=== PATIENT | male | born 1970 | race Caucasian/White ===

== ENCOUNTER 2022-05-12 20:57 | Inpatient (IN) | payer OTHER ==
[~2022-05-12] VITALS: Ht 167.6 cm; Wt 89.4 kg
[~2022-05-12 20:57] MED LIST: METF-371
[2022-05-12] MEDS ORDERED: NITROGLYCERIN 0.4 MG SL TAB SL ONE (21:15)
[2022-05-12] MEDS ORDERED: HEPARIN SODIUM (PORCINE) 5000 UNITS/ML 1ML VIAL IV ONE (21:15)
[2022-05-12] MEDS ORDERED: HEPARIN DRIP/D5W 100UNITS/ML 250 ML IV SCH (21:30)
[2022-05-12 21:46] LABS: Basophils # (auto) 0 10 ^3/uL (0-0.2); Basophils % (auto) 0.2 % (0.0-2.0); Eosinophils # (auto) 0.1 10 ^3/uL (0-0.8); Eosinophils % (auto) 0.5 % (0.0-7.0); Hematocrit 50.2 % (41.0-53.0); Hemoglobin 16.7 g/dL (13.5-17.5); Lymphocytes # (auto) 2.1 10 ^3/uL (0.4-5.4); Lymphocytes % (auto) 17.9 % (10.0-50.0); Mean Corpuscular Hemoglobin 28.9 pg (28.0-32.0); Mean Corpuscular Hgb Conc. 33.4 g/dL (32.0-36.0); Mean Corpuscular Volume 86.6 fL (80.0-100.0); Monocytes # (auto) 1.1 10 ^3/uL (0-1.3); Monocytes % (auto) 9.9 % (0.0-12.0); Neutrophils # (auto) 8.2 10 ^3/uL (1.6-8.6); Neutrophils % (auto) 71.5 % (37.0-80.0); Nucleated Red Blood Cells % 0.1 %; Red Cell Distribution Width 13.7 % (11.8-14.3); White Blood Cell 11.5 10^3/uL (4.4-10.8)
[2022-05-12 21:58] LABS: BUN/Creatinine Ratio 13.9; Calcium 8.4 mg/dL (8.5-10.1); Potassium 4.9 mmol/L (3.5-5.1)
[2022-05-12 22:01] LABS: Bilirubin, Total 1.5 mg/dL (0.2-1.0); Total Protein 6.3 g/dL (6.4-8.2)
[2022-05-12 22:04] LABS: INR 1.02 (0.9-1.15); Partial Thromboplastin Time 30.2 sec (24.6-33.4)
[2022-05-12] MEDS ORDERED: ACETAMINOPHEN 325 MG TAB PO PRN (22:30)
[2022-05-12] MEDS ORDERED: HYDROcodone-ACET 5/325MG TAB PO PRN (22:30)
[2022-05-12] MEDS ORDERED: DOCUSATE SOD 100 MG CAP PO PRN (22:30)
[2022-05-12] MEDS ORDERED: ONDANSETRON HCL 4 MG/2 ML VIAL IV PRN (22:30)
[2022-05-12] MEDS ORDERED: IBUPROFEN 600 MG TAB PO PRN (22:30)
[2022-05-12] MEDS ORDERED: DEXTROSE (50%) 50ML SYRG IV PRN (22:30)
[2022-05-12] MEDS ORDERED: MORPHINE SULFATE INJ 2 MG/ml SYRG IV PRN (23:30)
[2022-05-12] MEDS ORDERED: NITROGLYCERIN 0.4 MG SL TAB SL PRN (23:30)
[2022-05-13] VITALS (44 sets, daily range): BP systolic 86–144; BP diastolic 39–99
[2022-05-13] MEDS: ACCU-CHEK COMFORT CURVE STRIP VI SCH ×5 (00:18→20:02)
[2022-05-13] MEDS: SODIUM CHLORIDE 0.9% 1,000 ML IV SCH ×2 (00:18→15:10)
[2022-05-13] MEDS: InsuLIN REG 1unit/0.01ml Soln (100units/ml) SC SCH ×5 (01:02→20:07)
[2022-05-13 05:09] LABS: Basophils # (auto) 0 10 ^3/uL (0-0.2); Basophils % (auto) 0.3 % (0.0-2.0); Eosinophils # (auto) 0.1 10 ^3/uL (0-0.8); Eosinophils % (auto) 0.6 % (0.0-7.0); Hematocrit 47.9 % (41.0-53.0); Hemoglobin 16.6 g/dL (13.5-17.5); Lymphocytes # (auto) 2.5 10 ^3/uL (0.4-5.4); Lymphocytes % (auto) 19.9 % (10.0-50.0); Mean Corpuscular Hemoglobin 29.5 pg (28.0-32.0); Mean Corpuscular Hgb Conc. 34.7 g/dL (32.0-36.0); Mean Corpuscular Volume 85.3 fL (80.0-100.0); Monocytes # (auto) 1.3 10 ^3/uL (0-1.3); Monocytes % (auto) 10.1 % (0.0-12.0); Neutrophils # (auto) 8.7 10 ^3/uL (1.6-8.6); Neutrophils % (auto) 69.1 % (37.0-80.0); Nucleated Red Blood Cells % 0.4 %; Red Blood Cells 5.61 10^6/uL (4.5-5.90); Red Cell Distribution Width 13.6 % (11.8-14.3); White Blood Cell 12.7 10^3/uL (4.4-10.8)
[2022-05-13 05:21] LABS: INR 1.03 (0.9-1.15); Partial Thromboplastin Time 39.4 sec (24.6-33.4)
[2022-05-13 05:26] LABS: Albumin 2.9 g/dL (3.4-5.0); BUN/Creatinine Ratio 18.5; Calcium 8.2 mg/dL (8.5-10.1)
[2022-05-13 05:28] LABS: Bilirubin, Total 1.2 mg/dL (0.2-1.0); Total Protein 6.2 g/dL (6.4-8.2)
[2022-05-13] MEDS ORDERED: HEPARIN DRIP/D5W 100UNITS/ML 250 ML IV SCH (06:15)
[2022-05-13] MEDS ORDERED: ASPirin 325 MG TAB ONE (07:53)
[2022-05-13] MEDS ORDERED: ASPirin-EC 325mg tab PO ONE (08:00)
[2022-05-13] MEDS ORDERED: ANGIOMAX 250 MG VIAL IV ONE ×2 (08:06→09:08)
[2022-05-13] MEDS ORDERED: HEPARIN SODIUM (PORCINE) 5000 UNITS/ML 1ML VIAL ONE (08:06)
[2022-05-13] MEDS ORDERED: fentaNYL CITRATE 100 MCG/2 ML VL ONE (08:06)
[2022-05-13] MEDS ORDERED: VERAPAMIL 2.5MG/ML INJ 2ML VIAL IV ONE (08:06)
[2022-05-13] MEDS ORDERED: MIDAZOLAM HCL 2MG/2ML 2ml VIAL (1mg/ml) ONE (08:06)
[2022-05-13] MEDS ORDERED: SODIUM CHL 0.9% 50 ML ONE ×2 (08:07→09:09)
[2022-05-13] MEDS ORDERED: LIDOCAINE 2%HCL (LOCAL ANESTH.) INJ 20ML MDV ONE (08:07)
[2022-05-13] MEDS ORDERED: IODIXANOL 320MG/ML 100ML BTL IV ONE ×2 (08:07→10:15)
[2022-05-13] MEDS ORDERED: ATROPINE SULF 1 MG/10ml SYR ONE (08:38)
[2022-05-13] MEDS ORDERED: EPTIFIBATIDE INJ (2MG/ML) 10ML VIAL IV ONE (08:38)
[2022-05-13] MEDS ORDERED: niCARdipine 25 MG/10 ML VIAL IV ONE (08:57)
[2022-05-13] MEDS ORDERED: DOPamine 1600MCG/ML D5W 250 ML IV ONE (09:05)
[2022-05-13] MEDS ORDERED: PHENYLEPHRINE HCL 10 MG/ML VL ONE (09:26)
[2022-05-13] MEDS ORDERED: NOREPINEPHRINE 8 MG/250ML KIT 250 ML IV ONE (09:32)
[2022-05-13] MEDS ORDERED: TICAGRELOR 90 MG TAB ONE (09:59)
[2022-05-13] MEDS ORDERED: ASPirin 81 mg TAB PO SCH (10:00)
[2022-05-13] MEDS ORDERED: FUROSEMIDE 20 MG/2 ML VIAL ONE (10:30)
[2022-05-13] MEDS ORDERED: NITROGLYCERIN 0.4 MG SL TAB SL PRN ×2 (10:45)
[2022-05-13] MEDS ORDERED: ONDANSETRON HCL 4 MG/2 ML VIAL IV PRN (10:45)
[2022-05-13] MEDS ORDERED: MORPHINE SULFATE INJ 2 MG/ml SYRG IV PRN ×2 (10:45→14:45)
[2022-05-13] MEDS ORDERED: ACETAMINOPHEN 500 MG TAB PO PRN (10:45)
[2022-05-13] MEDS: DOPamine 1600MCG/ML D5W 250 ML IV SCH ×2 (11:30→13:07)
[2022-05-13] MEDS: NOREPINEPHRINE 8 MG/250ML KIT 250 ML IV SCH ×2 (11:30→16:15)
[2022-05-13] MEDS ORDERED: NICOTINE 21MG/24 HR TOPICAL PATCH TD ONE (13:45)
[2022-05-13 14:02] LABS: INR 1.89 (0.9-1.15)
[2022-05-13 14:14] LABS: Partial Thromboplastin Time 80.6 sec (24.6-33.4)
[2022-05-13] MEDS ORDERED: MORPHINE SULFATE INJ 2 MG/ml SYRG ONE (14:54)
[2022-05-13] MEDS: TICAGRELOR 90 MG TAB PO SCH (20:58)
[2022-05-13] MEDS: ALPRAZolam 0.5 MG TAB PO PRN (21:00)
[2022-05-13] MEDS ORDERED: ATORVASTATIN 20 MG TAB PO SCH (22:00)
[2022-05-13] MEDS ORDERED: HYDROcodone-ACET 5/325MG TAB PO PRN (23:45)
[2022-05-14] VITALS (50 sets, daily range): BP systolic 87–136; BP diastolic 41–94
[2022-05-14] MEDS: ACCU-CHEK COMFORT CURVE STRIP VI SCH ×6 (00:10→20:28)
[2022-05-14] MEDS: InsuLIN REG 1unit/0.01ml Soln (100units/ml) SC SCH ×6 (00:12→20:00)
[2022-05-14 04:02] LABS: Basophils # (auto) 0 10 ^3/uL (0-0.2); Basophils % (auto) 0.1 % (0.0-2.0); Eosinophils # (auto) 0.1 10 ^3/uL (0-0.8); Eosinophils % (auto) 0.5 % (0.0-7.0); Hematocrit 41.9 % (41.0-53.0); Hemoglobin 14.3 g/dL (13.5-17.5); Lymphocytes # (auto) 2.1 10 ^3/uL (0.4-5.4); Lymphocytes % (auto) 16.4 % (10.0-50.0); Mean Corpuscular Hemoglobin 29.1 pg (28.0-32.0); Mean Corpuscular Hgb Conc. 34.2 g/dL (32.0-36.0); Monocytes # (auto) 1.4 10 ^3/uL (0-1.3); Red Blood Cells 4.93 10^6/uL (4.5-5.90); Red Cell Distribution Width 13.5 % (11.8-14.3); White Blood Cell 12.5 10^3/uL (4.4-10.8)
[2022-05-14 04:15] LABS: Albumin 2.7 g/dL (3.4-5.0); Calcium 8.1 mg/dL (8.5-10.1); Magnesium 1.9 mg/dL (1.6-2.6); Potassium 3.6 mmol/L (3.5-5.1)
[2022-05-14 04:20] LABS: BUN/Creatinine Ratio 19.6; Bilirubin, Total 1.5 mg/dL (0.2-1.0); Total Protein 6.2 g/dL (6.4-8.2)
[2022-05-14] MEDS: ALPRAZolam 0.5 MG TAB PO PRN (05:30)
[2022-05-14] MEDS: SODIUM CHLORIDE 0.9% 1,000 ML IV SCH (07:51)
[2022-05-14] MEDS: NICOTINE 21MG/24 HR TOPICAL PATCH TD SCH (08:37)
[2022-05-14] MEDS ORDERED: MORPHINE SULFATE INJ 2 MG/ml SYRG IV PRN ×2 (09:15)
[2022-05-14] MEDS ORDERED: LORazepam 2MG/ML-1ML VIAL IV PRN (09:15)
[2022-05-14] MEDS: TICAGRELOR 90 MG TAB PO SCH ×2 (09:40→22:27)
[2022-05-14] MEDS: ASPirin-EC 81 mg tab PO SCH (09:40)
[2022-05-14] MEDS: POTASSIUM CHL 20MEQ/100ML 100 ML IV SCH ×2 (09:40→11:35)
[2022-05-14] MEDS: FUROSEMIDE 20 MG/2 ML VIAL IV SCH (09:40)
[2022-05-14] MEDS ORDERED: MAGNESIUM SULFATE 1GM/100ML 100 ML IV ONE (10:00)
[2022-05-14] MEDS: DOPamine 1600MCG/ML D5W 250 ML IV SCH (16:23)
[2022-05-14] MEDS: ATORVASTATIN 20 MG TAB PO SCH (22:28)
[2022-05-15] VITALS (32 sets, daily range): BP systolic 75–124; BP diastolic 18–83
[2022-05-15] MEDS: ACCU-CHEK COMFORT CURVE STRIP VI SCH ×6 (00:26→22:11)
[2022-05-15] MEDS: InsuLIN REG 1unit/0.01ml Soln (100units/ml) SC SCH ×6 (00:29→22:17)
[2022-05-15 04:09] LABS: Basophils # (auto) 0 10 ^3/uL (0-0.2); Basophils % (auto) 0.3 % (0.0-2.0); Eosinophils # (auto) 0 10 ^3/uL (0-0.8); Eosinophils % (auto) 0.4 % (0.0-7.0); Hematocrit 40.5 % (41.0-53.0); Hemoglobin 14.1 g/dL (13.5-17.5); Lymphocytes # (auto) 1.9 10 ^3/uL (0.4-5.4); Lymphocytes % (auto) 18.6 % (10.0-50.0); Mean Corpuscular Hemoglobin 29.8 pg (28.0-32.0); Mean Corpuscular Hgb Conc. 34.7 g/dL (32.0-36.0); Monocytes # (auto) 0.9 10 ^3/uL (0-1.3); Monocytes % (auto) 9.1 % (0.0-12.0); Neutrophils # (auto) 7.5 10 ^3/uL (1.6-8.6); Neutrophils % (auto) 71.6 % (37.0-80.0); Nucleated Red Blood Cells % 0.1 %; Red Blood Cells 4.71 10^6/uL (4.5-5.90); Red Cell Distribution Width 13.7 % (11.8-14.3); White Blood Cell 10.4 10^3/uL (4.4-10.8)
[2022-05-15 04:12] LABS: Calcium 8.1 mg/dL (8.5-10.1); Magnesium 2.2 mg/dL (1.6-2.6); Potassium 3.7 mmol/L (3.5-5.1)
[2022-05-15 04:14] LABS: BUN/Creatinine Ratio 23.6
[2022-05-15] MEDS: DOPamine 1600MCG/ML D5W 250 ML IV SCH (07:12)
[2022-05-15] MEDS: TICAGRELOR 90 MG TAB PO SCH ×2 (09:47→22:00)
[2022-05-15] MEDS: NOREPINEPHRINE 8 MG/250ML KIT 250 ML IV SCH (09:47)
[2022-05-15] MEDS: ASPirin-EC 81 mg tab PO SCH (09:47)
[2022-05-15] MEDS: FUROSEMIDE 20 MG/2 ML VIAL IV SCH (09:47)
[2022-05-15] MEDS: NICOTINE 21MG/24 HR TOPICAL PATCH TD SCH (09:47)
[2022-05-15] MEDS ORDERED: POTASSIUM CHL 20 Meq TABLET PO ONE (10:45)
[2022-05-15] MEDS ORDERED: ALPRAZolam 0.5 MG TAB PO PRN (21:15)
[2022-05-15] MEDS: ATORVASTATIN 20 MG TAB PO SCH (22:10)
[2022-05-16] VITALS (36 sets, daily range): BP systolic 72–108; BP diastolic 38–77
[2022-05-16] MEDS: ACCU-CHEK COMFORT CURVE STRIP VI SCH ×4 (05:46→21:22)
[2022-05-16] MEDS: EMPAGLIFLOZIN 10 MG TAB PO SCH (05:46)
[2022-05-16] MEDS: InsuLIN REG 1unit/0.01ml Soln (100units/ml) SC SCH ×4 (05:47→21:23)
[2022-05-16 06:29] LABS: Calcium 8.6 mg/dL (8.5-10.1); Magnesium 1.7 mg/dL (1.6-2.6); Potassium 3.8 mmol/L (3.5-5.1)
[2022-05-16] MEDS: POTASSIUM CHL 20 Meq TABLET PO SCH (10:36)
[2022-05-16] MEDS: ASPirin-EC 81 mg tab PO SCH (10:36)
[2022-05-16] MEDS: FUROSEMIDE 20 MG/2 ML VIAL IV SCH (10:36)
[2022-05-16] MEDS: NOREPINEPHRINE 8 MG/250ML KIT 250 ML IV SCH (10:45)
[2022-05-16] MEDS: TICAGRELOR 90 MG TAB PO SCH ×2 (11:11→21:22)
[2022-05-16] MEDS: ATORVASTATIN 20 MG TAB PO SCH (21:22)
[2022-05-17 04:55] VITALS: BP 90/64
[2022-05-17] MEDS: ACCU-CHEK COMFORT CURVE STRIP VI SCH (06:36)
[2022-05-17] MEDS: EMPAGLIFLOZIN 10 MG TAB PO SCH (06:36)
[2022-05-17] MEDS: InsuLIN REG 1unit/0.01ml Soln (100units/ml) SC SCH (06:37)
[2022-05-17 09:00] VITALS: BP_SYST 107; BP_SYST 114; BP_DIAS 54; BP_DIAS 63
[2022-05-17] MEDS: FUROSEMIDE 20 MG/2 ML VIAL IV SCH (09:55)
[2022-05-17] MEDS: POTASSIUM CHL 20 Meq TABLET PO SCH (09:55)
[2022-05-17] MEDS: TICAGRELOR 90 MG TAB PO SCH (09:55)
[2022-05-17] MEDS: ASPirin-EC 81 mg tab PO SCH (09:55)
[2022-05-17] MEDS ORDERED: TICA90TA PO (10:29)
[2022-05-17] MEDS ORDERED: ALPR0.25 PO (10:29)
[2022-05-17] MEDS ORDERED: ASPI-325 PO (10:29)
[2022-05-17] MEDS ORDERED: ATO40T PO (10:29)
[2022-05-17] MEDS ORDERED: EMPA1TAB PO (10:29)
[2022-05-17 11:36] VITALS: BP 111/74
== END 2022-05-17 12:20 | disposition home or self-care (01) | DRG 270 ==
LOC: EDBD 20:57 → ER 20:57 → EDUNIT# 20:57 → UNDOADMIN 23:23 → OVERFLOW 23:23 → ICU WEST 05-13 11:59 → TELE-WESTW 05-16 23:33
PROVIDERS: ADMIT Nurse Practitioner Family; ATTEND Internal Medicine Geriatric Medicine
PROC: 027037Z Dilation of Coronary Artery, One Artery with Four or More Drug-eluting Intraluminal Devices, Percutaneous Approach (ICD-10-PCS; principal; 2022-05-13)
PROC: 5A02210 Assistance with Cardiac Output using Balloon Pump, Continuous (ICD-10-PCS; 2022-05-13)
PROC: 02C03ZZ Extirpation of Matter from Coronary Artery, One Artery, Percutaneous Approach (ICD-10-PCS; 2022-05-13)
PROC: B44LZZZ Ultrasonography of Femoral Artery (ICD-10-PCS; 2022-05-13)
PROC: 4A023N7 Measurement of Cardiac Sampling and Pressure, Left Heart, Percutaneous Approach (ICD-10-PCS; 2022-05-13)
PROC: B211YZZ Fluoroscopy of Multiple Coronary Arteries using Other Contrast (ICD-10-PCS; 2022-05-13)
PROC: 5A0935A Assistance with Respiratory Ventilation, Less than 24 Consecutive Hours, High Flow/Velocity Cannula (ICD-10-PCS; 2022-05-13)
PROC: 3E073PZ Introduction of Platelet Inhibitor into Coronary Artery, Percutaneous Approach (ICD-10-PCS; 2022-05-13)
PROC: 06HY33Z Insertion of Infusion Device into Lower Vein, Percutaneous Approach (ICD-10-PCS; 2022-05-13)
PROC: B54BZZA Ultrasonography of Right Lower Extremity Veins, Guidance (ICD-10-PCS; 2022-05-13)
DX: I21.19 ST elevation (STEMI) myocardial infarction involving other coronary artery of inferior wall (principal); I50.21 Acute systolic (congestive) heart failure; J96.01 Acute respiratory failure with hypoxia; R57.0 Cardiogenic shock; E87.1 Hypo-osmolality and hyponatremia; I25.10 Atherosclerotic heart disease of native coronary artery without angina pectoris; I11.0 Hypertensive heart disease with heart failure; D72.829 Elevated white blood cell count, unspecified; E11.65 Type 2 diabetes mellitus with hyperglycemia; E66.9 Obesity, unspecified; Z20.822 Contact with and (suspected) exposure to COVID-19; F17.200 Nicotine dependence, unspecified, uncomplicated; R79.89 Other specified abnormal findings of blood chemistry; I25.5 Ischemic cardiomyopathy; Z88.0 Allergy status to penicillin; Z83.3 Family history of diabetes mellitus; Z82.49 Family history of ischemic heart disease and other diseases of the circulatory system; Z68.31 Body mass index [BMI] 31.0-31.9, adult; Z79.02 Long term (current) use of antithrombotics/antiplatelets; Z79.84 Long term (current) use of oral hypoglycemic drugs; Z79.82 Long term (current) use of aspirin; Z79.899 Other long term (current) drug therapy
CPT/HCPCS: 33967; 36415; 36600; 71045; 80048; 80053; 80061; 82805; 82962; 83036; 83735; 84484; 85025; 85610; 85730; 87081; 87426; 92928; 92929; 93005; 93306; 93458; 96365; 96375; 99152; 99153; 99291; C1874; G0378; J1815; J2250; J3480; Q9967

== ENCOUNTER 2024-09-29 22:51 | Emergency (ER) | payer OTHER ==
[~2024-09-29] VITALS: Ht 177.8 cm; Wt 100.0 kg
[2024-09-29 22:51] VITALS: BP 0/0; PULSE 0; RESP 0; TEMP 100.5; O2SAT 0
[~2024-09-29 22:51] MED LIST changes: +ALPR0.25 PO; +ASPI-325 PO; +ATOR-507 PO; +EMPA1TAB PO; +TICA90TA PO
[2024-09-29] MEDS ORDERED: EPINEPHrine HCL 1 MG/10 ML SYRG IV ONE (22:52)
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
== END 2024-09-29 23:09 ==
LOC: ER 22:51 → EDBD 22:51 → EDUNIT# 22:51 → ER 23:09
DX: I46.9 Cardiac arrest, cause unspecified (principal); Z79.899 Other long term (current) drug therapy
CPT/HCPCS: 82947; 92950; 99285; J0171